=== PATIENT | female | born 1955 | race Caucasian/White ===

== ENCOUNTER 2022-05-05 09:39 | Inpatient (IN) | payer MEDICARE, OTHER ==
[2022-05-04] MEDS: NORMAL SALINE 5 ML DISP.SYRIN IVF SCH (22:00)
[~2022-05-05] VITALS: Ht 157.5 cm; Wt 88.0 kg
[2022-05-05 09:48] VITALS: BP_SYST 105
[2022-05-05] MEDS ORDERED: cefTRIAXone 1 GM IVPB PREMIX 50 ML IV ONE (10:45)
[2022-05-05] MEDS ORDERED: ALBUTEROL SULFATE 0.083% 2.5 MG/3 ML VIAL.NEB INH ONE (11:00)
[2022-05-05] MEDS ORDERED: methylPREDNISolone SOD SUCC/PF 62.5 MG/ML VIAL IVP ONE (11:00)
[2022-05-05] MEDS ORDERED: IPRATROPIUM BROM 0.5 MG/2.5 ML VIAL.NEB (ATROVENT) INH ONE (11:00)
[2022-05-05 11:17] LABS: BASOPHILS % (AUTO) 0.1 % (0.0-2.0); EOSINOPHILS # (AUTO) 0.1 K/uL (0.0-0.4); EOSINOPHILS % (AUTO) 0.3 % (0.0-4.0); HEMOGLOBIN 10.5 g/dL (12.0-16.0); LYMPHOCYTES # (AUTO) 0.4 K/uL (1.0-5.5); LYMPHOCYTES % (AUTO) 2.4 % (20.5-51.5); MEAN CORPUSCULAR HEMOGLOBIN 29 pg (27-31); MEAN CORPUSCULAR HGB CONC 33 % (32-36); MEAN CORPUSCULAR VOLUME 88 fL (79.0-98.0); MONOCYTES # (AUTO) 1.4 K/uL (0.0-1.0); MONOCYTES % (AUTO) 7.7 % (1.7-9.3); NEUTROPHILS # (AUTO) 16.6 K/uL (1.8-7.7); NEUTROPHILS % (AUTO) 89.5 % (40.0-70.0); PLATELET COUNT (AUTO) 307 K/uL (130-430); RED BLOOD CELL COUNT(AUTO) 3.65 MIL/uL (4.2-6.2); WHITE BLOOD COUNT (AUTO) 18.5 K/uL (4.8-10.8)
[2022-05-05 11:53] LABS: ANION GAP 11 (5-15); CALCIUM 8.3 mg/dL (8.4-11.0); CHLORIDE 99 mmol/L (98-107); CREATININE 0.89 mg/dL (0.55-1.30); GLUCOSE 213 mg/dL (70-99); UREA NITROGEN, BLOOD 16 mg/dL (8-21)
[2022-05-05 12:00] LABS: ALANINE AMINOTRANSFERASE 50 U/L (12-78); ALBUMIN 2.3 g/dL (3.4-4.8); ASPARTATE AMINOTRANSFERASE 33 U/L (10-37); TOTAL BILIRUBIN 1.2 mg/dL (0.0-1.0)
[2022-05-05 12:01] LABS: GFR AFRICAN AMERICAN 82 mL/min (>90)
[2022-05-05] MEDS ORDERED: ROPI0.5T4 PO (12:43)
[2022-05-05] MEDS ORDERED: CELE200C PO (12:43)
[2022-05-05] MEDS ORDERED: CARV25TA55 PO (12:43)
[2022-05-05] MEDS ORDERED: FURO20TA4 PO (12:43)
[2022-05-05] MEDS ORDERED: PANT40GR PO (12:43)
[2022-05-05] MEDS ORDERED: ESCI5TAB PO (12:43)
[2022-05-05] MEDS ORDERED: ATOR10TA68 PO (12:43)
[2022-05-05] MEDS ORDERED: WARF4TAB68 PO (12:46)
[2022-05-05 13:26] VITALS: BP_SYST 115
[2022-05-05 14:56] LABS: INR 7.5 (0.8-1.2); PROTHROMBIN TIME 69.4 SECS (9.5-12.5)
[2022-05-05] MEDS: IPRATROPIUM/ALBUTEROL SULFATE 3 ML AMPUL.NEB (DUONEB) INH SCH ×3 (15:00→23:34)
[2022-05-05] MEDS: AZITHROMYCIN 500 MG in NS 250 ML IV SCH (15:29)
[2022-05-05 17:08] VITALS: BP_SYST 114
[2022-05-05] MEDS ORDERED: PHYTONADIONE 10 MG in NS 50 ML IV ONE (17:15)
[2022-05-05 18:48] VITALS: BP_SYST 114
[2022-05-05] MEDS ORDERED: ONDANSETRON HCL 4 MG/2 ML VIAL IVP PRN (19:15)
[2022-05-05] MEDS ORDERED: HYDROcodone/ACETAMIN 10-325 MG TAB PO PRN (19:15)
[2022-05-05] MEDS ORDERED: ACETAMINOPHEN 325 MG TABLET PO PRN (19:15)
[2022-05-05] MEDS ORDERED: HYDROcodone/ACETAMIN 5-325 MG TAB (NORCO/ VICODIN) PO PRN (19:15)
[2022-05-05] MEDS ORDERED: NALOXONE HCL 0.4 MG/ML AMP (NARCAN) IVP PRN ×2 (19:15)
[2022-05-05] MEDS ORDERED: LORazepam 2 MG/ML VIAL IVP PRN (19:15)
[2022-05-05 20:00] VITALS: BP_SYST 107
[2022-05-05] MEDS: roPINIRole HCL 0.25 MG ( REQUIP )TABLET PO SCH (21:00)
[2022-05-05] MEDS: CARVEDILOL 25 MG TABLET (COREG) PO SCH (21:46)
[2022-05-05] MEDS: ATORVASTATIN 10 MG TABLET PO SCH (21:47)
[2022-05-05] MEDS ORDERED: NORMAL SALINE 5 ML DISP.SYRIN IVF SCH (22:00)
[2022-05-06] VITALS: BP_SYST 112
[2022-05-06] MEDS: IPRATROPIUM/ALBUTEROL SULFATE 3 ML AMPUL.NEB (DUONEB) INH SCH ×6 (03:00→23:24)
[2022-05-06] MEDS: NORMAL SALINE 5 ML DISP.SYRIN IVF SCH ×3 (07:30→20:45)
[2022-05-06 08:00] VITALS: BP_SYST 128
[2022-05-06] MEDS: roPINIRole HCL 0.25 MG ( REQUIP )TABLET PO SCH ×2 (08:39→20:49)
[2022-05-06] MEDS: PANTOPRAZOLE SODIUM 40 MG TAB PO SCH (08:40)
[2022-05-06] MEDS ORDERED: roPINIRole HCL 0.25 MG ( REQUIP )TABLET ONE (08:40)
[2022-05-06] MEDS: CARVEDILOL 25 MG TABLET (COREG) PO SCH ×2 (08:40→20:45)
[2022-05-06] MEDS: CITALOPRAM HYDROBROMIDE 20 MG TABLET PO SCH (08:41)
[2022-05-06] MEDS: FUROSEMIDE 20 MG TABLET PO SCH (08:42)
[2022-05-06] MEDS: CELECOXIB 200 MG CAPSULE PO SCH (08:42)
[2022-05-06 11:52] LABS: BASOPHILS % (AUTO) 0.1 % (0.0-2.0); HEMATOCRIT 32.3 % (36-48); HEMOGLOBIN 10.7 g/dL (12.0-16.0); LYMPHOCYTES # (AUTO) 0.5 K/uL (1.0-5.5); LYMPHOCYTES % (AUTO) 3.7 % (20.5-51.5); MEAN CORPUSCULAR HEMOGLOBIN 29 pg (27-31); MEAN CORPUSCULAR HGB CONC 33 % (32-36); MEAN CORPUSCULAR VOLUME 88 fL (79.0-98.0); MONOCYTES # (AUTO) 0.9 K/uL (0.0-1.0); MONOCYTES % (AUTO) 6.3 % (1.7-9.3); NEUTROPHILS # (AUTO) 13.3 K/uL (1.8-7.7); NEUTROPHILS % (AUTO) 89.9 % (40.0-70.0); PLATELET COUNT (AUTO) 334 K/uL (130-430); RED CELL DISTRIBUTION WIDTH 16.3 % (9.0-15.0); WHITE BLOOD COUNT (AUTO) 14.8 K/uL (4.8-10.8)
[2022-05-06 11:58] VITALS: BP_SYST 123
[2022-05-06 11:58] LABS: CALCIUM 8.8 mg/dL (8.4-11.0); CREATININE 0.83 mg/dL (0.55-1.30)
[2022-05-06 12:19] LABS: INR 1.5 (0.8-1.2); PROTHROMBIN TIME 14.7 SECS (9.5-12.5)
[2022-05-06] MEDS: cefTRIAXone 1 GM in D5W 50 ML IV SCH (14:55)
[2022-05-06] MEDS: AZITHROMYCIN 500 MG in NS 250 ML IV SCH (14:57)
[2022-05-06] MEDS: VANCOMYCIN HCL 750 MG in NS 250 ML IV SCH (16:02)
[2022-05-06] MEDS: WARFARIN SODIUM 4 MG TABLET PO SCH (16:37)
[2022-05-06 17:24] VITALS: BP_SYST 113
[2022-05-06 20:00] VITALS: BP_SYST 118
[2022-05-06] MEDS: ATORVASTATIN 10 MG TABLET PO SCH (20:45)
[2022-05-07 00:20] VITALS: BP_SYST 104
[2022-05-07] MEDS: IPRATROPIUM/ALBUTEROL SULFATE 3 ML AMPUL.NEB (DUONEB) INH SCH ×6 (03:00→23:54)
[2022-05-07] MEDS: AZITHROMYCIN 500 MG in NS 250 ML IV SCH ×2 (05:12→14:50)
[2022-05-07 07:03] LABS: BASOPHILS % (AUTO) 0.2 % (0.0-2.0); HEMATOCRIT 32.2 % (36-48); HEMOGLOBIN 10.6 g/dL (12.0-16.0); LYMPHOCYTES # (AUTO) 0.9 K/uL (1.0-5.5); LYMPHOCYTES % (AUTO) 4.4 % (20.5-51.5); MEAN CORPUSCULAR HEMOGLOBIN 29 pg (27-31); MEAN CORPUSCULAR HGB CONC 33 % (32-36); MEAN CORPUSCULAR VOLUME 87 fL (79.0-98.0); MONOCYTES # (AUTO) 1.4 K/uL (0.0-1.0); MONOCYTES % (AUTO) 7.1 % (1.7-9.3); NEUTROPHILS # (AUTO) 17.6 K/uL (1.8-7.7); NEUTROPHILS % (AUTO) 88.3 % (40.0-70.0); PLATELET COUNT (AUTO) 372 K/uL (130-430); RED BLOOD CELL COUNT(AUTO) 3.69 MIL/uL (4.2-6.2); WHITE BLOOD COUNT (AUTO) 19.9 K/uL (4.8-10.8)
[2022-05-07] MEDS: VANCOMYCIN HCL 750 MG in NS 250 ML IV SCH ×2 (07:32→17:18)
[2022-05-07] MEDS: NORMAL SALINE 5 ML DISP.SYRIN IVF SCH ×3 (07:33→22:17)
[2022-05-07 07:53] VITALS: BP_SYST 124
[2022-05-07 07:56] LABS: ALBUMIN 2.4 g/dL (3.4-4.8); C-REACTIVE PROTEIN QUANT 14.2 mg/dL (0-0.5); CALCIUM 8.6 mg/dL (8.4-11.0); CREATININE 0.87 mg/dL (0.55-1.30); TOTAL BILIRUBIN 0.7 mg/dL (0.0-1.0)
[2022-05-07 08:13] LABS: ERYTHROCYTE SEDIMENTATION RATE 68 MM/HR (0-20)
[2022-05-07 08:14] LABS: INR 1.4 (0.8-1.2); PROTHROMBIN TIME 13.7 SECS (9.5-12.5)
[2022-05-07] MEDS: roPINIRole HCL 0.25 MG ( REQUIP )TABLET PO SCH ×2 (08:36→22:17)
[2022-05-07] MEDS: CELECOXIB 200 MG CAPSULE PO SCH (08:36)
[2022-05-07] MEDS: FUROSEMIDE 20 MG TABLET PO SCH (08:37)
[2022-05-07] MEDS: CITALOPRAM HYDROBROMIDE 20 MG TABLET PO SCH (08:37)
[2022-05-07] MEDS: PANTOPRAZOLE SODIUM 40 MG TAB PO SCH (08:37)
[2022-05-07] MEDS: CARVEDILOL 25 MG TABLET (COREG) PO SCH ×2 (08:38→22:17)
[2022-05-07 10:10] VITALS: BP_SYST 101
[2022-05-07] MEDS: cefTRIAXone 1 GM in D5W 50 ML IV SCH (11:49)
[2022-05-07 15:48] VITALS: BP_SYST 100
[2022-05-07] MEDS: WARFARIN SODIUM 4 MG TABLET PO SCH (17:25)
[2022-05-07 20:00] VITALS: BP_SYST 115
[2022-05-07] MEDS: ATORVASTATIN 10 MG TABLET PO SCH (22:17)
[2022-05-08 00:30] VITALS: BP_SYST 95
[2022-05-08] MEDS: IPRATROPIUM/ALBUTEROL SULFATE 3 ML AMPUL.NEB (DUONEB) INH SCH ×6 (03:17→23:01)
[2022-05-08] MEDS: VANCOMYCIN HCL 750 MG in NS 250 ML IV SCH ×2 (06:17→18:09)
[2022-05-08] MEDS: NORMAL SALINE 5 ML DISP.SYRIN IVF SCH ×3 (06:18→21:07)
[2022-05-08 08:00] VITALS: BP_SYST 123
[2022-05-08 08:04] LABS: INR 1.7 (0.8-1.2); PROTHROMBIN TIME 16.7 SECS (9.5-12.5)
[2022-05-08 08:27] LABS: BASOPHILS % (AUTO) 0.1 % (0.0-2.0); EOSINOPHILS # (AUTO) 0.3 K/uL (0.0-0.4); EOSINOPHILS % (AUTO) 2.3 % (0.0-4.0); HEMATOCRIT 31.7 % (36-48); HEMOGLOBIN 10.5 g/dL (12.0-16.0); LYMPHOCYTES # (AUTO) 0.7 K/uL (1.0-5.5); LYMPHOCYTES % (AUTO) 4.6 % (20.5-51.5); MEAN CORPUSCULAR HEMOGLOBIN 29 pg (27-31); MEAN CORPUSCULAR HGB CONC 33 % (32-36); MEAN CORPUSCULAR VOLUME 88 fL (79.0-98.0); MONOCYTES # (AUTO) 1.6 K/uL (0.0-1.0); MONOCYTES % (AUTO) 10.6 % (1.7-9.3); NEUTROPHILS # (AUTO) 12.2 K/uL (1.8-7.7); NEUTROPHILS % (AUTO) 82.4 % (40.0-70.0); PLATELET COUNT (AUTO) 294 K/uL (130-430); RED BLOOD CELL COUNT(AUTO) 3.61 MIL/uL (4.2-6.2); RED CELL DISTRIBUTION WIDTH 16.1 % (9.0-15.0); WHITE BLOOD COUNT (AUTO) 14.7 K/uL (4.8-10.8)
[2022-05-08] MEDS: PANTOPRAZOLE SODIUM 40 MG TAB PO SCH (08:59)
[2022-05-08] MEDS: CELECOXIB 200 MG CAPSULE PO SCH (08:59)
[2022-05-08] MEDS: roPINIRole HCL 0.25 MG ( REQUIP )TABLET PO SCH ×2 (08:59→20:32)
[2022-05-08] MEDS: FUROSEMIDE 20 MG TABLET PO SCH (09:00)
[2022-05-08] MEDS: CARVEDILOL 25 MG TABLET (COREG) PO SCH ×2 (09:01→20:33)
[2022-05-08] MEDS: CITALOPRAM HYDROBROMIDE 20 MG TABLET PO SCH (09:01)
[2022-05-08 09:08] LABS: C-REACTIVE PROTEIN QUANT 8.7 mg/dL (0-0.5); CALCIUM 8.3 mg/dL (8.4-11.0); CREATININE 0.75 mg/dL (0.55-1.30)
[2022-05-08] MEDS ORDERED: MIDAZOLAM IN NACL,ISO-OSMOT/PF 100 ML IV PRN (10:45)
[2022-05-08] MEDS ORDERED: FENTANYL CITRATE-0.9 % NACL/PF 100 ML IV PRN (10:45)
[2022-05-08 11:02] LABS: ERYTHROCYTE SEDIMENTATION RATE 46 MM/HR (0-20)
[2022-05-08 11:39] VITALS: BP_SYST 116
[2022-05-08] MEDS: AZITHROMYCIN 500 MG in NS 250 ML IV SCH (14:49)
[2022-05-08 15:08] VITALS: BP_SYST 116
[2022-05-08 15:32] VITALS: BP_SYST 110
[2022-05-08] MEDS: WARFARIN SODIUM 4 MG TABLET PO SCH (18:09)
[2022-05-08 20:00] VITALS: BP_SYST 133
[2022-05-08] MEDS: CEFEPIME 2 GM in D5W 100 ML IV SCH (20:32)
[2022-05-08] MEDS: ATORVASTATIN 10 MG TABLET PO SCH (20:32)
[2022-05-09 00:16] VITALS: BP_SYST 126
[2022-05-09] MEDS: IPRATROPIUM/ALBUTEROL SULFATE 3 ML AMPUL.NEB (DUONEB) INH SCH ×5 (02:47→20:09)
[2022-05-09] MEDS: NORMAL SALINE 5 ML DISP.SYRIN IVF SCH ×3 (05:39→22:07)
[2022-05-09] MEDS: VANCOMYCIN HCL 750 MG in NS 250 ML IV SCH ×2 (05:40→17:57)
[2022-05-09 07:21] LABS: PROTHROMBIN TIME 19.3 SECS (9.5-12.5)
[2022-05-09] MEDS: CEFEPIME 2 GM in D5W 100 ML IV SCH ×2 (08:59→22:06)
[2022-05-09] MEDS: PANTOPRAZOLE SODIUM 40 MG TAB PO SCH (09:00)
[2022-05-09] MEDS: roPINIRole HCL 0.25 MG ( REQUIP )TABLET PO SCH ×2 (09:00→22:06)
[2022-05-09] MEDS: CITALOPRAM HYDROBROMIDE 20 MG TABLET PO SCH (09:00)
[2022-05-09] MEDS: CELECOXIB 200 MG CAPSULE PO SCH (09:00)
[2022-05-09] MEDS: CARVEDILOL 25 MG TABLET (COREG) PO SCH ×2 (09:01→22:05)
[2022-05-09] MEDS: FUROSEMIDE 20 MG TABLET PO SCH (09:01)
[2022-05-09 09:45] LABS: ALBUMIN 2.3 g/dL (3.4-4.8); BILIRUBIN,DIRECT 0.3 mg/dL (0.0-0.3); TOTAL BILIRUBIN 0.7 mg/dL (0.0-1.0)
[2022-05-09 12:07] LABS: HEPATITIS A AB, IgM Negative (Negative); HEPATITIS B CORE AB, IgM Negative (Negative); HEPATITIS B SURFACE AG Negative (Negative)
[2022-05-09 12:36] VITALS: BP_SYST 129
[2022-05-09] MEDS: AZITHROMYCIN 500 MG in NS 250 ML IV SCH (14:58)
[2022-05-09 16:51] VITALS: BP_SYST 127
[2022-05-09] MEDS: WARFARIN SODIUM 4 MG TABLET PO SCH (17:56)
[2022-05-09 20:00] VITALS: BP_SYST 112
[2022-05-09] MEDS: ATORVASTATIN 10 MG TABLET PO SCH (22:04)
[2022-05-10] VITALS: BP_SYST 105
[2022-05-10] MEDS: IPRATROPIUM/ALBUTEROL SULFATE 3 ML AMPUL.NEB (DUONEB) INH SCH ×5 (05:41→20:06)
[2022-05-10] MEDS: NORMAL SALINE 5 ML DISP.SYRIN IVF SCH ×3 (06:53→22:10)
[2022-05-10] MEDS: VANCOMYCIN HCL 750 MG in NS 250 ML IV SCH ×2 (06:53→17:24)
[2022-05-10 06:54] LABS: BASOPHILS % (AUTO) 0.3 % (0.0-2.0); EOSINOPHILS # (AUTO) 0.3 K/uL (0.0-0.4); EOSINOPHILS % (AUTO) 2.9 % (0.0-4.0); HEMATOCRIT 30.5 % (36-48); HEMOGLOBIN 10.2 g/dL (12.0-16.0); LYMPHOCYTES # (AUTO) 0.6 K/uL (1.0-5.5); LYMPHOCYTES % (AUTO) 6.3 % (20.5-51.5); MEAN CORPUSCULAR HEMOGLOBIN 29 pg (27-31); MEAN CORPUSCULAR HGB CONC 34 % (32-36); MEAN CORPUSCULAR VOLUME 88 fL (79.0-98.0); MONOCYTES # (AUTO) 0.8 K/uL (0.0-1.0); MONOCYTES % (AUTO) 7.9 % (1.7-9.3); NEUTROPHILS # (AUTO) 7.9 K/uL (1.8-7.7); NEUTROPHILS % (AUTO) 82.6 % (40.0-70.0); PLATELET COUNT (AUTO) 226 K/uL (130-430); RED BLOOD CELL COUNT(AUTO) 3.48 MIL/uL (4.2-6.2); RED CELL DISTRIBUTION WIDTH 16.3 % (9.0-15.0); WHITE BLOOD COUNT (AUTO) 9.6 K/uL (4.8-10.8)
[2022-05-10 07:12] LABS: PROTHROMBIN TIME 19.9 SECS (9.5-12.5)
[2022-05-10 07:40] LABS: ALBUMIN 2.3 g/dL (3.4-4.8); CALCIUM 8.1 mg/dL (8.4-11.0); CREATININE 0.75 mg/dL (0.55-1.30); TOTAL BILIRUBIN 0.9 mg/dL (0.0-1.0)
[2022-05-10 08:24] VITALS: BP_SYST 117
[2022-05-10] MEDS: CEFEPIME 2 GM in D5W 100 ML IV SCH ×2 (08:30→22:05)
[2022-05-10] MEDS: FUROSEMIDE 20 MG TABLET PO SCH (08:31)
[2022-05-10] MEDS: PANTOPRAZOLE SODIUM 40 MG TAB PO SCH (08:31)
[2022-05-10] MEDS: CELECOXIB 200 MG CAPSULE PO SCH (08:31)
[2022-05-10] MEDS: CITALOPRAM HYDROBROMIDE 20 MG TABLET PO SCH (08:31)
[2022-05-10] MEDS: roPINIRole HCL 0.25 MG ( REQUIP )TABLET PO SCH ×2 (08:31→22:09)
[2022-05-10] MEDS: CARVEDILOL 25 MG TABLET (COREG) PO SCH ×2 (08:32→22:09)
[2022-05-10 11:07] LABS: HEPATITIS C VIRUS AB Negative <0.8 s/co (0.0-0.7)
[2022-05-10 11:45] VITALS: BP_SYST 101
[2022-05-10 15:40] VITALS: BP_SYST 121
[2022-05-10] MEDS: WARFARIN SODIUM 4 MG TABLET PO SCH (17:27)
[2022-05-10 20:00] VITALS: BP_SYST 120
[2022-05-10] MEDS: ATORVASTATIN 10 MG TABLET PO SCH (22:09)
[2022-05-11] MEDS: IPRATROPIUM/ALBUTEROL SULFATE 3 ML AMPUL.NEB (DUONEB) INH SCH ×4 (00:06→11:36)
[2022-05-11 01:25] VITALS: BP_SYST 120
[2022-05-11] MEDS: NORMAL SALINE 5 ML DISP.SYRIN IVF SCH (05:41)
[2022-05-11] MEDS: VANCOMYCIN HCL 750 MG in NS 250 ML IV SCH (05:41)
[2022-05-11 07:14] LABS: BASOPHILS % (AUTO) 0.5 % (0.0-2.0); EOSINOPHILS # (AUTO) 0.2 K/uL (0.0-0.4); EOSINOPHILS % (AUTO) 3.5 % (0.0-4.0); HEMATOCRIT 30.5 % (36-48); HEMOGLOBIN 10.1 g/dL (12.0-16.0); LYMPHOCYTES # (AUTO) 0.7 K/uL (1.0-5.5); LYMPHOCYTES % (AUTO) 10.9 % (20.5-51.5); MEAN CORPUSCULAR HEMOGLOBIN 29 pg (27-31); MEAN CORPUSCULAR HGB CONC 33 % (32-36); MEAN CORPUSCULAR VOLUME 88 fL (79.0-98.0); MONOCYTES # (AUTO) 0.7 K/uL (0.0-1.0); MONOCYTES % (AUTO) 9.9 % (1.7-9.3); NEUTROPHILS # (AUTO) 5.1 K/uL (1.8-7.7); NEUTROPHILS % (AUTO) 75.2 % (40.0-70.0); PLATELET COUNT (AUTO) 220 K/uL (130-430); RED BLOOD CELL COUNT(AUTO) 3.47 MIL/uL (4.2-6.2); RED CELL DISTRIBUTION WIDTH 16.2 % (9.0-15.0); WHITE BLOOD COUNT (AUTO) 6.8 K/uL (4.8-10.8)
[2022-05-11 07:25] LABS: ALBUMIN 2.3 g/dL (3.4-4.8); C-REACTIVE PROTEIN QUANT 6.7 mg/dL (0-0.5); CALCIUM 8.2 mg/dL (8.4-11.0); CREATININE 0.75 mg/dL (0.55-1.30); TOTAL BILIRUBIN 0.8 mg/dL (0.0-1.0)
[2022-05-11 07:28] LABS: INR 2.2 (0.8-1.2); PROTHROMBIN TIME 21.9 SECS (9.5-12.5)
[2022-05-11 08:00] VITALS: BP_SYST 126
[2022-05-11 08:05] VITALS: BP_SYST 120
[2022-05-11 08:36] LABS: ERYTHROCYTE SEDIMENTATION RATE 47 MM/HR (0-20)
[2022-05-11] MEDS: roPINIRole HCL 0.25 MG ( REQUIP )TABLET PO SCH (09:04)
[2022-05-11] MEDS: CELECOXIB 200 MG CAPSULE PO SCH (09:05)
[2022-05-11] MEDS: CEFEPIME 2 GM in D5W 100 ML IV SCH (09:07)
[2022-05-11] MEDS: PANTOPRAZOLE SODIUM 40 MG TAB PO SCH (09:07)
[2022-05-11] MEDS: FUROSEMIDE 20 MG TABLET PO SCH (09:08)
[2022-05-11] MEDS: CARVEDILOL 25 MG TABLET (COREG) PO SCH (09:08)
[2022-05-11] MEDS: CITALOPRAM HYDROBROMIDE 20 MG TABLET PO SCH (09:09)
[2022-05-11] MEDS ORDERED: SACC250C3 PO (10:31)
[2022-05-11] MEDS ORDERED: LEVO-62 PO (10:31)
[2022-05-11 12:00] VITALS: BP_SYST 128
[2022-05-11 16:00] VITALS: BP_SYST 120
[2022-05-11 16:29] VITALS: BP_SYST 107
== END 2022-05-11 13:15 | disposition home health service (06) | DRG 871 ==
LOC: SED 09:39 → STU 11:09
PROVIDERS: ADMIT Specialist; ATTEND Specialist
DX: A41.9 Sepsis, unspecified organism (principal); E43 Unspecified severe protein-calorie malnutrition; J18.9 Pneumonia, unspecified organism; J96.01 Acute respiratory failure with hypoxia; D68.59 Other primary thrombophilia; E87.1 Hypo-osmolality and hyponatremia; E87.20 Acidosis, unspecified; D84.9 Immunodeficiency, unspecified; C85.90 Non-Hodgkin lymphoma, unspecified, unspecified site; D64.9 Anemia, unspecified; E78.5 Hyperlipidemia, unspecified; E88.09 Other disorders of plasma-protein metabolism, not elsewhere classified; I10 Essential (primary) hypertension; Z20.822 Contact with and (suspected) exposure to COVID-19; E87.6 Hypokalemia; E83.51 Hypocalcemia; E66.9 Obesity, unspecified; R74.01 Elevation of levels of liver transaminase levels; Z90.710 Acquired absence of both cervix and uterus; Z79.01 Long term (current) use of anticoagulants; Z95.2 Presence of prosthetic heart valve; Z95.0 Presence of cardiac pacemaker; Z79.899 Other long term (current) drug therapy; Z68.35 Body mass index [BMI] 35.0-35.9, adult
CPT/HCPCS: 36415; 36600; 71045; 76700-TC; 80048; 80053; 80074; 80076; 80202; 82803-TC; 83605; 84484; 85025; 85610-TC; 85651-TC; 86140; 86635; 86738; 86803; 87040; 87305; 93005; 94640; 94660; 94760; 96365; 96375; 97116-GP; 97163-GP; 99285; G0378; J0456; J0692; J0696; J2930; J3430; J7050; J7060; J7613